=== PATIENT | male | born 1980 | race Caucasian/White ===

== ENCOUNTER 2017-07-31 01:56 | Emergency (ER) | payer OTHER ==
[~2017-07-31] VITALS: Ht 172.7 cm; Wt 80.0 kg
[2017-07-31] MEDS ORDERED: ONDANSETRON ODT 8 MG ONE (02:04)
[2017-07-31] MEDS ORDERED: ONDANSETRON ODT 4 MG PO ONE (02:30)
[2017-07-31 04:24] VITALS: BP 110/73
== END 2017-07-31 04:55 | disposition home or self-care (01) ==
LOC: ED 04:50
DX: F10.120 Alcohol abuse with intoxication, uncomplicated (principal); Y90.9 Presence of alcohol in blood, level not specified
CPT/HCPCS: 99283; Q0162